=== PATIENT | female | born 1975 | race Caucasian/White ===

== ENCOUNTER 2016-07-21 09:27 | Inpatient (IN) | payer BC ==
[~2016-07-21] VITALS: Ht 162.5 cm; Wt 118.8 kg
--- NOTE | ~2016-07-21 | WRIGHTHP ---
[place], [place] PATIENT HISTORY AND PHYSICAL EXAM NAME: NANETTE QUIROGA [facility] #: [id number] UNIT #: [id number] ROOM: 519 DOCTOR: WATSON SCRUGGS MD BIRTHDATE: [birth year] DOS: 07/21/2016 DIAGNOSES: 1. Obesity. 2. Factor V Leiden mutation. The patient anticoagulated with Coumadin. 3. Nicotine smoke dependence. 4. History of folic acid deficiency. The patient presented to the Emergency Department with a 2-week complaints of off and on substernal chest pain radiating into the right shoulder and right neck with some cold sweats. No nausea, vomiting, no diarrhea, constipation, no other GI or urinary symptoms. The patient has no cardiac history and the pain has lasted only a few minutes at a time. The patient was admitted and cardiac enzymes were checked to be normal and the patient has been completely asymptomatic and pain free since admission. REVIEW OF SYSTEMS: LUNGS: No shortness of breath or wheezing. GASTROINTESTINAL: No nausea, vomiting, diarrhea, constipation. CARDIOVASCULAR: Recurrent chest pains, but not after admission. FAMILY HISTORY: Noncontributory. SOCIAL HISTORY: . Smokes 1 pack of cigarettes a day. Denies any alcohol or drug abuse. FAMILY HISTORY: Noncontributory. HOME MEDICATIONS: Coumadin, omeprazole, metoprolol. ALLERGIES: Known allergies TO MORPHINE AND CODEINE. PHYSICAL EXAMINATION: GENERAL: Alert and oriented x 3, in no visible distress. Obesity with BMI of 45. Otherwise, or edema. HEENT AND NECK: Extraocular movements are intact. Sclerae are anicteric. Oral mucosa is moist and clean. No obvious facial weakness. Neck is supple without any lymphadenopathy. No thyromegaly. No JVD. No carotid arterial bruits. LUNGS: Clear to auscultation. No wheezing. No rhonchi. CARDIOVASCULAR SYSTEM: Heart rate is regular in rate and rhythm. S1 and S2 normally audible. No significant murmur or any other abnormal cardiac sounds. ABDOMEN: Soft, nontender. No obvious organomegaly. Bowel sounds are present. No obvious herniation. EXTREMITIES: Without significant cyanosis or edema. Warm to touch. CENTRAL NERVOUS SYSTEM: Alert and oriented x 3. Cranial nerves II-XII are intact. Speech is normal. The patient is able to move all extremities. Normal muscle strength. Deep tendon reflexes are equal on both sides. Plantars were downgoing. IMPRESSION AND PLAN: [place], [place] PATIENT HISTORY AND PHYSICAL EXAM NAME: NANETTE QUIROGA [facility] #: [id number] UNIT #: [id number] ROOM: [facility] DOCTOR: WATSON SCRUGGS MD BIRTHDATE: [birth year] 1. The patient with recurrent chest pains from uncertain etiology. All cardiac enzymes were baseline and normal. The patient has been completely pain free since admission. The patient has been evaluated by her group burner machine, Dr. Villasenor and cleared for discharge. The patient is already scheduled for an outpatient cardiac stress test and an echocardiogram to be performed by Dr. Villasenor on Sunday, which is day after tomorrow. I will send the patient home on aspirin, Coumadin and her home medications as well as nicotine patch because she plans to stop smoking cigarettes. The patient was asked to come straight back to the Emergency Department if she develops chest pains again. 2. Obesity. The patient to work on diet and she is considering bariatric surgery for weight loss. I had a good discussion regarding diet and weight controlled with her today. 3. Nicotine smoke dependence. The patient is willing to stop smoking cigarettes and was given nicotine patch 21 mg daily. 4. Benign essential hypertension with some elevated blood pressures for which metoprolol was added and continued at home. The patient has to follow with Dr. Jermaine Headley this week. Continue all her home medications and aspirin. WATSON SCRUGGS MD CM:HISPHYS:PATIENT HISTORY AND PHYSICAL EXAMINATION 56 [id number] WATSON SCRUGGS MD 07/22/16 220 interface
[~2016-07-21 09:27] MED LIST: ASPIRIN81 M1 PO; BACTRIM DS 8001 TA1 PO; Coumadin10 MG PO; Coumadin2.5 MG PO; DOXYCYCLINE100 M3 PO; DOXYCYCLINE100 MG PO; LOVENOX100 MG/1 M PO; METOPROLOL25 MG PO; NATURE'S BLEND F1 MG PO; PRILOSEC OTC20 MG PO; SEPTRA DS 800 M1 TA1 PO; WARFARIN SODIUM10 MG PO; [UNRECOGNIZED DRUG - OTHER] PO
[2016-07-21 09:31] VITALS: BP 170/98
[2016-07-21 09:52] LABS: BASO % 0.4 % (0.0-1.0); EOS # 0.2 10*3/uL (0.0-0.4); EOS % 2.2 % (1.0-4.0); HEMATOCRIT 47.1 % (37.0-47.0); LYMPH # 1.9 10*3/uL (1.3-4.4); LYMPH % 19.7 % (27.0-41.0); MEAN CELL VOLUME 95.5 fl (81.0-99.0); MEAN CORPUSCULAR HGB 32.5 pg (27.0-31.0); MEAN PLATELET VOLUME 10.5 fl (9.6-12.3); MONO # 0.6 10*3/uL (0.1-1.0); MONO % 6.2 % (3.0-9.0); NEUT % 71.2 % (47.0-73.0); PLATELET COUNT AUTOMATED 222 10*3/uL (130-400); RED BLOOD COUNT 4.93 10*6/uL (4.10-5.10); RED CELL DISTRI WIDTH 13.7 % (0-14.5); WHITE BLOOD COUNT 9.8 10*3/uL (4.8-10.8)
[2016-07-21 10:05] LABS: INTERNATIONAL NORM RATIO 1.6 (2.0-3.5); PROTHROMBIN TIME 17.6 SECONDS (9.0-12.4)
[2016-07-21 10:09] LABS: ALKALINE PHOSPHATASE 107 U/L (45-117); BILIRUBIN, TOTAL 0.6 mg/dl (0.2-1.0); BUN 11 mg/dl (7-24); CARBON DIOXIDE 23 mmol/L (21-32); CHLORIDE 108 mmol/L (98-107); EST GLOM FILT AFRICAN AMERICAN > 60 ml/min; GLUCOSE 93 mg/dL (65-99); MAGNESIUM 2.4 mg/dL (1.5-2.1); POTASSIUM 3.8 mmol/L (3.5-5.1); SGOT/AST 13 IU/L (3-35); SGPT/ALT 21 U/L (12-78); SODIUM 142 mmol/L (136-145); TOTAL PROTEIN 7.7 gm/dL (6.4-8.2)
[2016-07-21 10:11] LABS: TROPONIN I < 0.015 ng/ml (<0.045)
[2016-07-21 10:31] VITALS: BP 164/88
[2016-07-21 12:50] VITALS: BP 136/98
[2016-07-21] MEDS ORDERED: COUMADIN10 M1 PO ×2 (13:00→13:02)
[2016-07-21] MEDS ORDERED: OMEPRAZOLE D/R20 MG PO (13:03)
[2016-07-21 16:18] VITALS: BP 163/88
[2016-07-21 20:59] VITALS: BP 128/99
[2016-07-22] VITALS: BP 150/80
[2016-07-22 08:00] VITALS: BP 128/100
[2016-07-22 16:34] VITALS: BP 158/90
[2016-07-22] MEDS ORDERED: KROGER NIC21 MG/24 H T (16:49)
[2016-07-22] MEDS ORDERED: LOPRESSOR25 MG PO (16:49)
[2016-07-22] MEDS ORDERED: ASPIRIN ADULT L81 M2 PO (16:49)
== END 2016-07-22 18:29 | disposition home or self-care (01) | DRG 311 ==
LOC: ED 09:27 → EDHOLD 11:26 → 5E 11:48
PROVIDERS: Emergency Medicine
DX: I20.0 Unstable angina (principal); D68.51 Activated protein C resistance; Z68.41 Body mass index [BMI] 40.0-44.9, adult; E66.9 Obesity, unspecified; F17.210 Nicotine dependence, cigarettes, uncomplicated; I10 Essential (primary) hypertension; Z88.6 Allergy status to analgesic agent

== ENCOUNTER → 2016-07-25 | Outpatient (CLI) | payer BC ==
[~2016-07-25] MED LIST changes: +ASPIRIN ADULT L81 M2 PO; +COUMADIN10 M1 PO; +KROGER NIC21 MG/24 H T; +LOPRESSOR25 MG PO; +OMEPRAZOLE D/R20 MG PO
--- NOTE | ~2016-07-25 | ST ---
[place], [place] EXERCISE STRESS TEST REPORT NAME: NANETTE QIUROGA [facility] #: [id number] UNIT #: [id number] ROOM: DOCTOR: JAMEY ANGELA [facility] BIRTHDATE: [birth year] DOS: 07/25/2016 LEXISCAN WITH CARDIOLITE The patient received Lexiscan 0.4 mg over 10 seconds. Heart rate is 99, no ischemic changes on the EKG. No complications noted. Isotope was injected. Myocardial perfusion scan to follow. CLARA CONCEPCION MD CM:STRESS:EXERCISE STRESS TEST REPORT [id number] WILMER CONCEPCION MD [facility]
== END ==
LOC: CARD 02:35
DX: R07.89 Other chest pain (principal); R53.81 Other malaise

== ENCOUNTER 2016-09-20 17:28 | Emergency (ER) | payer BC ==
[~2016-09-20] VITALS: Ht 162.5 cm; Wt 117.9 kg
[2016-09-20] MEDS ORDERED: LISINOPRIL AND1 TAB PO (17:34)
[2016-09-20 18:23] LABS: BASO # 0.1 10*3/uL (0.0-0.1); BASO % 0.5 % (0.0-1.0); EOS # 0.4 10*3/uL (0.0-0.4); EOS % 3.5 % (1.0-4.0); HEMATOCRIT 42.8 % (37.0-47.0); HEMOGLOBIN 14.8 g/dl (12.0-16.0); LYMPH # 2.4 10*3/uL (1.3-4.4); LYMPH % 20.1 % (27.0-41.0); MEAN CELL VOLUME 92.8 fl (81.0-99.0); MEAN CORPUSCULAR HGB 32.1 pg (27.0-31.0); MEAN CORPUSCULAR HGB CONC 34.6 g/dl (33.0-37.0); MEAN PLATELET VOLUME 10.7 fl (9.6-12.3); MONO # 0.7 10*3/uL (0.1-1.0); MONO % 5.7 % (3.0-9.0); NEUT # 8.2 10*3/uL (2.3-7.9); NEUT % 69.9 % (47.0-73.0); PLATELET COUNT AUTOMATED 219 10*3/uL (130-400); RED BLOOD COUNT 4.61 10*6/uL (4.10-5.10); RED CELL DISTRI WIDTH 12.8 % (0-14.5); WHITE BLOOD COUNT 11.7 10*3/uL (4.8-10.8)
[2016-09-20 18:32] LABS: INTERNATIONAL NORM RATIO 1.2 (2.0-3.5); PROTHROMBIN TIME 13.2 SECONDS (9.0-12.4)
[2016-09-20 18:38] LABS: ALBUMIN 3.6 gm/dl (3.1-4.5); ALKALINE PHOSPHATASE 102 U/L (45-117); BILIRUBIN, TOTAL 0.8 mg/dl (0.2-1.0); BUN 12 mg/dl (7-24); CARBON DIOXIDE 26 mmol/L (21-32); CHLORIDE 103 mmol/L (98-107); EST GLOM FILT AFRICAN AMERICAN > 60 ml/min; GLUCOSE 101 mg/dL (65-99); POTASSIUM 2.9 mmol/L (3.5-5.1); SGOT/AST 18 IU/L (3-35); SGPT/ALT 25 U/L (12-78); SODIUM 139 mmol/L (136-145); TOTAL PROTEIN 7.3 gm/dL (6.4-8.2)
[2016-09-20] MEDS ORDERED: CLINDAMYCIN HC300 MG PO (19:43)
[2016-09-20] MEDS ORDERED: K-TAB20 MEQ PO (19:49)
== END 2016-09-20 19:51 | disposition home or self-care (01) ==
LOC: ED 17:28
PROVIDERS: Physician Assistant
DX: L03.115 Cellulitis of right lower limb (principal); Z88.6 Allergy status to analgesic agent; Z79.82 Long term (current) use of aspirin; Z86.718 Personal history of other venous thrombosis and embolism; F17.200 Nicotine dependence, unspecified, uncomplicated; Z90.49 Acquired absence of other specified parts of digestive tract; Z79.01 Long term (current) use of anticoagulants

== ENCOUNTER → 2017-10-25 | Outpatient (CLI) | payer BC ==
[~2017-10-25] MED LIST changes: +CLINDAMYCIN HC300 MG PO; +K-TAB20 MEQ PO; +LISINOPRIL AND1 TAB PO
[2017-10-25 14:00] LABS: HEMATOCRIT 37.3 % (37.0-47.0); HEMOGLOBIN 12.5 g/dl (12.0-16.0); MEAN CELL VOLUME 92.6 fl (81.0-99.0); MEAN CORPUSCULAR HGB CONC 33.5 g/dl (33.0-37.0); MEAN PLATELET VOLUME 10.2 fl (9.6-12.3); RED BLOOD COUNT 4.03 10*6/uL (4.10-5.10); RED CELL DISTRI WIDTH 14.1 % (0-14.5); WHITE BLOOD COUNT 12.9 10*3/uL (4.8-10.8)
[2017-10-25 14:17] LABS: ALKALINE PHOSPHATASE 133 U/L (45-117); BUN 4 mg/dl (7-24); CHLORIDE 101 mmol/L (98-107); POTASSIUM 3.3 mmol/L (3.5-5.1); SGOT/AST 39 IU/L (3-35); SGPT/ALT 54 U/L (12-78); SODIUM 138 mmol/L (136-145); TOTAL PROTEIN 7.9 gm/dL (6.4-8.2)
== END | disposition home or self-care (01) ==
LOC: LAB 13:41
PROVIDERS: Family Medicine
DX: L03.116 Cellulitis of left lower limb (principal); I82.409 Acute embolism and thrombosis of unspecified deep veins of unspecified lower extremity

== ENCOUNTER → 2017-11-23 | Outpatient (CLI) | payer BC | END | disposition home or self-care (01) | LOC: LAB 09:44 | PROVIDERS: Family Medicine | DX: Z51.81 Encounter for therapeutic drug level monitoring (principal); Z79.01 Long term (current) use of anticoagulants ==

== ENCOUNTER 2018-05-03 11:58 | Emergency (ER) | payer BC ==
[~2018-05-03] VITALS: Ht 162.5 cm; Wt 95.3 kg
== END 2018-05-03 13:28 | disposition home or self-care (01) ==
LOC: ED 11:58
DX: S09.90XA Unspecified injury of head, initial encounter (principal); R03.0 Elevated blood-pressure reading, without diagnosis of hypertension; D68.51 Activated protein C resistance; F17.200 Nicotine dependence, unspecified, uncomplicated; Z88.5 Allergy status to narcotic agent; Z79.01 Long term (current) use of anticoagulants; Z79.82 Long term (current) use of aspirin; Z79.899 Other long term (current) drug therapy; Z90.710 Acquired absence of both cervix and uterus; Z90.49 Acquired absence of other specified parts of digestive tract; W01.10XA Fall on same level from slipping, tripping and stumbling with subsequent striking against unspecified object, initial encounter; Y93.89 Activity, other specified; Y92.89 Other specified places as the place of occurrence of the external cause; Y99.8 Other external cause status

== ENCOUNTER → 2018-05-03 | Outpatient (CLI) | payer BC ==
[2018-05-03 13:22] LABS: HEMATOCRIT 41.1 % (37.0-47.0); HEMOGLOBIN 13.7 g/dl (12.0-16.0); MEAN CELL VOLUME 95.1 fl (81.0-99.0); MEAN CORPUSCULAR HGB 31.7 pg (27.0-31.0); MEAN CORPUSCULAR HGB CONC 33.3 g/dl (33.0-37.0); MEAN PLATELET VOLUME 10.6 fl (9.6-12.3); RED BLOOD COUNT 4.32 10*6/uL (4.10-5.10); RED CELL DISTRI WIDTH 14.5 % (0-14.5); WHITE BLOOD COUNT 7.3 10*3/uL (4.8-10.8)
[2018-05-03 13:36] LABS: ALBUMIN 3.6 gm/dl (3.1-4.5); BUN 7 mg/dl (7-24); CHLORIDE 103 mmol/L (98-107); CHOLESTEROL 149 mg/dL (<200); CREATININE 0.79 mg/dL (0.55-1.02); POTASSIUM 3.8 mmol/L (3.5-5.1); SGOT/AST 22 IU/L (3-35); SGPT/ALT 27 U/L (12-78); SODIUM 137 mmol/L (136-145); TRIGLYCERIDES 95 mg/dl (<150); VLDL CHOLESTEROL 19 mg/dL (6-40)
[2018-05-03 13:37] LABS: ALKALINE PHOSPHATASE 141 U/L (45-117); HDL CHOLESTEROL 87 mg/dl (40-60); LDL CHOLESTEROL 43 mg/dL (9-159)
[2018-05-03 13:44] LABS: INTERNATIONAL NORM RATIO 2.9 (2.0-3.5)
== END | disposition home or self-care (01) ==
LOC: LAB 12:15
PROVIDERS: Family Medicine
DX: S09.90XA Unspecified injury of head, initial encounter (principal); R53.83 Other fatigue; Z79.01 Long term (current) use of anticoagulants; X58.XXXA Exposure to other specified factors, initial encounter; Y93.89 Activity, other specified; Y92.89 Other specified places as the place of occurrence of the external cause; Y99.8 Other external cause status

== ENCOUNTER 2020-08-23 12:17 | Emergency (ER) | payer BC ==
[~2020-08-23] VITALS: Wt 81.6 kg
[2020-08-23 13:31] LABS: BASO # 0.1 10*3/uL (0.0-0.1); BASO % 0.5 % (0.0-1.0); EOS # 0.2 10*3/uL (0.0-0.4); EOS % 1.8 % (1.0-4.0); HEMATOCRIT 42.9 % (37.0-47.0); LYMPH # 1.5 10*3/uL (1.3-4.4); LYMPH % 14.7 % (27.0-41.0); MEAN CELL VOLUME 99.3 fl (81.0-99.0); MEAN CORPUSCULAR HGB 33.3 pg (27.0-31.0); MEAN CORPUSCULAR HGB CONC 33.6 g/dl (33.0-37.0); MEAN PLATELET VOLUME 9.9 fl (9.6-12.3); MONO # 0.8 10*3/uL (0.1-1.0); MONO % 7.7 % (3.0-9.0); NEUT # 7.8 10*3/uL (2.3-7.9); PLATELET COUNT AUTOMATED 216 10*3/uL (130-400); RED BLOOD COUNT 4.32 10*6/uL (4.10-5.10); RED CELL DISTRI WIDTH 12.9 % (0-14.5); WHITE BLOOD COUNT 10.4 10*3/uL (4.8-10.8)
[2020-08-23 13:40] LABS: INTERNATIONAL NORM RATIO 2.6 (2.0-3.5)
[2020-08-23 13:48] LABS: ALKALINE PHOSPHATASE 139 U/L (45-117); BUN 7 mg/dl (7-24); CHLORIDE 109 mmol/L (98-107); CREATININE 0.59 mg/dL (0.55-1.02); POTASSIUM 3.9 mmol/L (3.5-5.1); SGOT/AST 34 IU/L (3-35); SGPT/ALT 37 U/L (12-78); SODIUM 140 mmol/L (136-145); TOTAL PROTEIN 6.7 gm/dL (6.4-8.2)
[2020-08-23 13:49] LABS: TROPONIN I < 0.015 ng/ml (<0.045)
== END 2020-08-23 16:52 | disposition home or self-care (01) ==
LOC: ED 12:17
PROVIDERS: Family Medicine
DX: R07.9 Chest pain, unspecified (principal); Z88.5 Allergy status to narcotic agent; Z79.899 Other long term (current) drug therapy; Z79.01 Long term (current) use of anticoagulants; Z90.711 Acquired absence of uterus with remaining cervical stump